=== PATIENT | female | born 1990 | race Caucasian/White ===

== ENCOUNTER 2020-09-06 13:05 | Emergency (ER) | payer SELFPAY ==
[~2020-09-06] VITALS: Ht 154.9 cm; Wt 70.9 kg
[2020-09-06] MEDS ORDERED: METFORMIN500 M2 PO (13:48)
[2020-09-06] MEDS ORDERED: LATUDA20 MG PO (13:49)
[2020-09-06] MEDS ORDERED: LANTUS100 UNIT SC (13:51)
[2020-09-06] MEDS ORDERED: ZOLOFT50 MG PO (13:52)
[2020-09-06] MEDS ORDERED: BUSPIRONE5 MG PO (13:52)
[2020-09-06] MEDS ORDERED: HYDROXYZ HCL25 MG PO (13:53)
[2020-09-06] MEDS ORDERED: IMITREX25 MG PO (13:53)
[2020-09-06] MEDS ORDERED: MORPHINE SUL15 MG PO (15:38)
[2020-09-06 16:00] VITALS: BP 150/89
== END 2020-09-06 16:13 | disposition home or self-care (01) ==
LOC: ED 13:05
DX: M25.571 Pain in right ankle and joints of right foot (principal); M79.672 Pain in left foot; E11.9 Type 2 diabetes mellitus without complications; F41.9 Anxiety disorder, unspecified; F32.9 Major depressive disorder, single episode, unspecified; W17.89XA Other fall from one level to another, initial encounter; Y92.009 Unspecified place in unspecified non-institutional (private) residence as the place of occurrence of the external cause; Z88.5 Allergy status to narcotic agent; Z88.6 Allergy status to analgesic agent; Z79.4 Long term (current) use of insulin

== ENCOUNTER 2021-05-02 09:30 | Emergency (ER) | payer MEDICAID ==
[~2021-05-02] VITALS: Ht 154.9 cm; Wt 75.0 kg
[~2021-05-02 09:30] MED LIST: BUSPIRONE5 MG PO; HYDROXYZ HCL25 MG PO; IMITREX25 MG PO; LANTUS100 UNIT SC; LATUDA20 MG PO; METFORMIN500 M2 PO; MORPHINE SUL15 MG PO; ZOLOFT50 MG PO
[2021-05-02 11:57] VITALS: BP 119/74
== END 2021-05-02 11:57 | disposition left against medical advice (07) | DRG 951 ==
LOC: ED 09:30 → LWOBS 11:56
PROVIDERS: Emergency Medicine
DX: Z53.21 Procedure and treatment not carried out due to patient leaving prior to being seen by health care provider (principal)

== ENCOUNTER 2022-05-06 09:38 | Emergency (ER) | payer MEDICAID ==
[~2022-05-06] VITALS: Ht 154.9 cm; Wt 74.6 kg
[2022-05-06] VITALS (7 sets, daily range): BP systolic 110–137; BP diastolic 70–96
[2022-05-06] MEDS ORDERED: OFLOXACIN0.3 % OS (10:59)
[2022-05-06] MEDS ORDERED: OXYCODONE5 M1 PO (11:02)
== END 2022-05-06 11:39 | disposition home or self-care (01) ==
LOC: ED 09:38
DX: S05.02XA Injury of conjunctiva and corneal abrasion without foreign body, left eye, initial encounter (principal); E11.9 Type 2 diabetes mellitus without complications; F41.9 Anxiety disorder, unspecified; F32.A Depression, unspecified; W54.8XXA Other contact with dog, initial encounter; Y92.009 Unspecified place in unspecified non-institutional (private) residence as the place of occurrence of the external cause; Z79.84 Long term (current) use of oral hypoglycemic drugs

== ENCOUNTER 2022-08-19 12:37 | Emergency (ER) | payer MEDICAID ==
[~2022-08-19] VITALS: Ht 154.9 cm; Wt 75.0 kg
[~2022-08-19 12:37] MED LIST changes: +OFLOXACIN0.3 % OS; +OXYCODONE5 M1 PO
[2022-08-19] MEDS ORDERED: AMOX/K CLAV875 M1 PO (13:49)
[2022-08-19] MEDS ORDERED: ZPAK PO (14:00)
[2022-08-19] MEDS ORDERED: DOXY-CAPS100 MG PO (14:11)
[2022-08-19 14:32] VITALS: BP 127/90
== END 2022-08-19 14:38 | disposition home or self-care (01) ==
LOC: ED 12:37
DX: J10.1 Influenza due to other identified influenza virus with other respiratory manifestations (principal); E11.9 Type 2 diabetes mellitus without complications; F41.9 Anxiety disorder, unspecified; F32.9 Major depressive disorder, single episode, unspecified; Z79.84 Long term (current) use of oral hypoglycemic drugs; Z79.4 Long term (current) use of insulin; Z20.822 Contact with and (suspected) exposure to COVID-19